=== PATIENT | male | born 1950 | race Caucasian/White ===

== ENCOUNTER 2021-03-29 09:15 | Emergency (ER) | payer MEDICARE, OTHER ==
[~2021-03-29] VITALS: Ht 177.8 cm; Wt 97.3 kg
--- NOTE | 2021-03-29 10:00 | NUR ---
Law to bedside for eval.
--- NOTE | 2021-03-29 10:05 | NUR ---
Pt presents to the ER after mechanical fall off ladder at approx 4 feet. Pt with head wound, bloody on hair but not major bleeding. Fall unwitnessed but pt denies LOC, does not take blood thinner. Pt complains of HARVEY, no confusion or disorientaion. Pt with visitor at bedside.
--- NOTE | 2021-03-29 11:04 | NUR ---
Law back to bedside to update pt on POC, including plan to d/c.
[2021-03-29 11:06] VITALS: BP 112/73
[2021-03-29] MEDS ORDERED: NEOSPORIN OINT. PKT 1 PACKET ONE ×2 (11:08→11:23)
== END 2021-03-29 11:37 | disposition home or self-care (01) ==
LOC: ED 11:10
DX: S00.91XA Abrasion of unspecified part of head, initial encounter (principal); S09.90XA Unspecified injury of head, initial encounter; W18.30XA Fall on same level, unspecified, initial encounter; Y93.89 Activity, other specified; Y92.009 Unspecified place in unspecified non-institutional (private) residence as the place of occurrence of the external cause; Y99.8 Other external cause status
CPT/HCPCS: 70450; 99284